=== PATIENT | male | born 1965 | race Native Hawaiian/Other Pacific Islander ===

== ENCOUNTER 2020-02-25 09:27 | Emergency (ER) | payer OTHER, SELFPAY ==
[~2020-02-25] VITALS: Ht 167.6 cm; Wt 77.1 kg
[2020-02-25 09:35] VITALS: BP 132/83
--- NOTE | 2020-02-25 09:43 | NUR ---
24 Y/O MALE C/O BILAT EAR PAIN X2 DAYS. DENIES ANY RECENT TRAUMA. DENIE ANY DISCHARGE. PT STATES HEARING HAS BEEN MUFFLED X2 DAYS. DENIES ANY COUGH, SOB, N/V/D. RESP EVEN AND UNLABORED. VSS. NO PMH
[2020-02-25] MEDS ORDERED: KETOROLAC 60 MG/2 ML VIAL IM ONE (09:55)
--- NOTE | 2020-02-25 10:10 | NUR ---
COVID-19 SWAB COLLECTED
--- NOTE | 2020-02-25 10:11 | NUR ---
Patient discharged with v/s stable. Written and verbal after care instructions given and explained. Patient alert, oriented and verbalized understanding of instructions. Ambulatory with steady gait. All questions addressed prior to discharge. ID band removed. Patient advised to follow up with PMD. Rx of MOTRIN/PREDNISONE/NORCO given. Patient educated on indication of medication including possible reaction and side effects. Opportunity to ask questions provided and answered.
[2020-02-25 10:12] VITALS: BP 132/83
--- NOTE | 2020-02-27 16:22 | NUR ---
POSITIVE RESULT OF COVID RECEIVED FROM LAB. INFETION CONTROL DEPT WILL CONTACT PATIENT.
== END 2020-02-25 10:11 | disposition home or self-care (01) ==
LOC: EDSEX 09:27 → MED 09:27
DX: U07.1 COVID-19 (principal); R05 Cough; R07.9 Chest pain, unspecified; R06.02 Shortness of breath
CPT/HCPCS: 96372; 99283; J1885; U0003

== ENCOUNTER 2020-03-12 10:56 | Emergency (ER) | payer OTHER, SELFPAY ==
[~2020-03-12] VITALS: Ht 170.2 cm; Wt 74.8 kg
[2020-03-12 11:03] VITALS: BP 117/78
[2020-03-12 13:48] VITALS: BP 117/78
== END 2020-03-12 13:48 | disposition home or self-care (01) ==
LOC: MED 10:56
DX: R07.9 Chest pain, unspecified (principal); Z20.828 Contact with and (suspected) exposure to other viral communicable diseases; H10.13 Acute atopic conjunctivitis, bilateral
CPT/HCPCS: 71045; 93005; 99285; Q0092; U0003

== ENCOUNTER 2020-03-26 12:41 | Emergency (ER) | payer OTHER, SELFPAY ==
[~2020-03-26] VITALS: Ht 170.2 cm; Wt 74.8 kg
[2020-03-26 12:56] VITALS: BP 112/75
--- NOTE | 2020-03-26 13:10 | NUR ---
C/O COUGH X 3 DAYS AND C/O ITCHY EYES X 3 WEEKS. PT HAD COVID TESTED + 02/25/20 . SEEN HERE 03/12/20 FOR ALLERGIC CONJECTIVITIS . RECHECK COVID TESTED 03/12/20 RESULT INTERMINATE
--- NOTE | 2020-03-26 14:30 | NUR ---
COVID SWAB DONE.
--- NOTE | 2020-03-26 14:35 | NUR ---
Patient discharged with v/s stable. Written and verbal after care instructions given and explained. Patient alert, oriented and verbalized understanding of instructions. Ambulatory with steady gait. All questions addressed prior to discharge. ID band removed. Patient advised to follow up with PMD. Rx of PREDNISONE & DIPHENHYDRAMINE given. Patient educated on indication of medication including possible reaction and side effects. Opportunity to ask questions provided and answered.
[2020-03-26 14:37] VITALS: BP 112/75
--- NOTE | 2020-03-28 10:58 | NUR ---
Covid results received from lab. Results = NOT DETECTED. Hard copy requested from lab and placed in infection controls mailbox.
== END 2020-03-26 14:35 | disposition home or self-care (01) ==
LOC: MED 12:41
DX: H10.10 Acute atopic conjunctivitis, unspecified eye (principal); R05 Cough; Z20.828 Contact with and (suspected) exposure to other viral communicable diseases
CPT/HCPCS: 71045; 99284; U0003

== ENCOUNTER 2020-11-20 11:10 | Emergency (ER) | payer OTHER, SELFPAY ==
[~2020-11-20] VITALS: Ht 170.2 cm; Wt 79.4 kg
[2020-11-20 11:13] VITALS: BP 139/74
--- NOTE | 2020-11-20 11:18 | NUR ---
PT AMBULATED TO BED 7, STEADY GAIT.
--- NOTE | 2020-11-20 11:25 | NUR ---
ABHIJIT ISLAS COLLECTED AND LAB CALLED FOR CHANNEL INSTALLER.
--- NOTE | 2020-11-20 11:30 | NUR ---
55 Y/M PRESENTS TO ED C C/O FEVER T MAX-102, HEADACHE 10/10 , LOSS OF SMELL FOR ONE WEEK. PT REPROTS HEACHE AND TEMP IMPROVE WITH TYLENOL . STATES HE HAS MILD SOB. PT HAS HX OF COVID BACK IN FEBRUARY 2020. 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 ADVISED BY PCP TO COME IN AND GET SWABBED. RR EVEN AND UNLABORED. PT A & O X 4. SKIN WARM, DRY TO TOUCH, PULSES 2 + NO PMH NKDA
--- NOTE | 2020-11-20 12:26 | NUR ---
Dr. Allen is evaluating the patient at bedside.
--- NOTE | 2020-11-20 12:26 | NUR ---
Patient being evaluated by Dr. Allen at bedside.
[2020-11-20] MEDS ORDERED: IBUP-2213 PO (12:49)
[2020-11-20 12:52] VITALS: BP 139/74
== END 2020-11-20 12:53 | disposition home or self-care (01) ==
LOC: MED 11:10
DX: R50.9 Fever, unspecified (principal); Z20.822 Contact with and (suspected) exposure to COVID-19; R42 Dizziness and giddiness; R43.9 Unspecified disturbances of smell and taste; M79.10 Myalgia, unspecified site
CPT/HCPCS: 99283; U0003

== ENCOUNTER 2022-05-07 08:51 | Emergency (ER) | payer OTHER ==
[~2022-05-07] VITALS: Ht 167.6 cm; Wt 77.1 kg
[~2022-05-07 08:51] MED LIST: IBUP-2213 PO
[2022-05-07 09:13] VITALS: BP 101/71
--- NOTE | 2022-05-07 09:17 | NUR ---
Patient ambulated with steady gait to bed 6.
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
--- NOTE | 2022-05-07 09:25 | NUR ---
X-Ray at bedside.
[2022-05-07] MEDS ORDERED: ALBUTEROL SULFATE/IPRATROPIU 3 ML SOL IH ONE ×2 (10:10→10:35)
--- NOTE | 2022-05-07 10:23 | NUR ---
[facility] GIVEN ORDERED ENCOURAGED PATIENT FOR INTERMITTENT DEEP BREATHING AND COUGH DURING THERAPY
--- NOTE | 2022-05-07 10:25 | NUR ---
RT AT BEDSIDE FOR BREATHING TX
--- NOTE | 2022-05-07 10:28 | NUR ---
56YO MALE PT C/O SOB [id number]. PT STATES BEING SEEN IN ER AND URGENT CARE FOR SYMPTOMS AND TOLD HE HAD BRONCHITIS/ PNEUMONIA . W/ NO RELIEF FROM RX ANTIBIOTICS AND STERIODS. PRESENTS W/ MOIST PRODUCTIVE COUGH. C/O L SIDED CHEST PAIN WHEN COUGHING. DENIES N/V/D, FEVER OR CHILLS. PT AAOX4, RESPIRATIONS EVEN AND UNLABORED. ON CLIENT DEVELOPMENT MANAGER HX:DENIES ALLERGIES: SEAFOOD
--- NOTE | 2022-05-07 10:30 | NUR ---
REVIEWED PULMONARY STATUS WITH DR. FERNANDA PUENTE MD TO ORDER FOLLOW UP [facility]
--- NOTE | 2022-05-07 10:34 | NUR ---
FOLLOW UP [facility] GIVEN ORDERED ENCOURAGED PATIENT FOR INTERMITTENT DEEP BREATHING AND COUGH DURING THERAPY PRODUCTIVE COUGH OF MODERATE THICK YELLOW/GOLD SECRETIONS DR. FERNANDA BAILEY NOTIFIED
[2022-05-07] MEDS ORDERED: BENZ150C2 PO (11:50)
[2022-05-07] MEDS ORDERED: AMOX-999 PO (11:50)
[2022-05-07] MEDS ORDERED: KETOROLAC 15 MG/ML VIAL IM ONE (12:10)
[2022-05-07 12:28] VITALS: BP 113/70
--- NOTE | 2022-05-07 12:28 | NUR ---
Patient discharged with v/s stable. Written and verbal after care instructions FOR SINUSITIS given and explained. Patient alert, oriented and verbalized understanding of instructions. Ambulatory with steady gait. All questions addressed prior to discharge. ID band removed. Patient advised to follow up with PMD. Rx of AMOXICILLIN AND BENZONATET given. Opportunity to ask questions provided and answered.
== END 2022-05-07 12:28 | disposition home or self-care (01) ==
LOC: MED 08:51
DX: J06.9 Acute upper respiratory infection, unspecified (principal); J32.9 Chronic sinusitis, unspecified
CPT/HCPCS: 71045; 94640; 94760; 96372; 99283; J1885

== ENCOUNTER 2022-05-12 19:20 | Inpatient (IN) | payer OTHER ==
[~2022-05-12] VITALS: Ht 167.6 cm; Wt 74.8 kg
[~2022-05-12 19:20] MED LIST changes: +AMOX-999 PO; +BENZ150C2 PO
[2022-05-12 19:33] VITALS: BP 107/71
--- NOTE | 2022-05-12 19:37 | NUR ---
TO LOBBY FOLLOWING TRIAGE
--- NOTE | 2022-05-12 20:15 | NUR ---
Dr. Hernandez examining patient.
[2022-05-12] MEDS ORDERED: IPRATROPIUM 0.02% 0.5 MG/2.5 ML NEBU INH ONE (20:20)
[2022-05-12] MEDS ORDERED: DEXAMETHASONE 10 MG/ML VIAL IVP ONE (20:20)
[2022-05-12] MEDS ORDERED: ALBUTEROL 0.083% 2.5 MG/3 ML NEBU INH ONE ×2 (20:20→22:20)
--- NOTE | 2022-05-12 20:57 | NUR ---
PT TAKEN TO BED 2
[2022-05-12 21:08] LABS: BASOPHILS % (AUTO) 0.5 % (0.0-2.0); EOSINOPHILS # (AUTO) 0.6 K/uL (0-0.4); EOSINOPHILS % (AUTO) 7.2 % (0.0-4.0); HEMATOCRIT 43.8 % (36-52); HEMOGLOBIN 15.3 g/dL (12.0-18.0); LYMPHOCYTES # (AUTO) 1.4 K/uL (2.0-11.5); LYMPHOCYTES % (AUTO) 17.4 % (20.5-51.1); MEAN CORPUSCULAR HEMOGLOBIN 33 pg (27-31); MEAN CORPUSCULAR HGB CONC 35 g/dL (33-37); MEAN CORPUSCULAR VOLUME 93.9 fL (80-94); MONOCYTES # (AUTO) 0.6 K/uL (0.8-1.0); MONOCYTES % (AUTO) 8.1 % (1.7-9.3); NEUTROPHILS # (AUTO) 5.2 K/uL (1.8-7.7); NEUTROPHILS % (AUTO) 66.8 % (42.2-75.2); PLATELET COUNT (AUTO) 228 K/uL (140-450); RED BLOOD CELL COUNT(AUTO) 4.67 MIL/uL (4.20-6.10); RED CELL DISTRIBUTION WIDTH 13.6 % (11.6-13.7); WHITE BLOOD COUNT (AUTO) 7.9 K/uL (4.8-10.8)
[2022-05-12 21:30] LABS: ALBUMIN 3.6 g/dL (3.4-5.0); ANION GAP 15.6 (8-16); CARBON DIOXIDE 23.7 mmol/L (21-32); CREATININE 0.9 mg/dL (0.6-1.3); POTASSIUM 4.3 mmol/L (3.5-5.1); TOTAL BILIRUBIN 0.4 mg/dL (0.0-1.0)
--- NOTE | 2022-05-12 22:00 | NUR ---
Patient A/Ox4, chest rise and fall symmetrical, no c/o pain or s/s of discomfort.
[2022-05-12] MEDS ORDERED: ACETAMINOPHEN 325 MG TAB PO PRN (23:15)
[2022-05-12] MEDS ORDERED: ONDANSETRON 4 MG/2 ML VIAL IVP PRN (23:15)
[2022-05-12] MEDS ORDERED: ALBUTEROL 0.083% 2.5 MG/3 ML NEBU INH PRN (23:15)
--- NOTE | 2022-05-13 | NUR ---
Patient A/Ox4, chest rise and fall symmetrical, no c/o pain or s/s of discomfort.
[2022-05-13] MEDS: ALBUTEROL 0.083% 2.5 MG/3 ML NEBU INH SCH ×4 (00:31→20:24)
[2022-05-13] MEDS: IPRATROPIUM 0.02% 0.5 MG/2.5 ML NEBU INH SCH ×4 (00:31→20:24)
--- NOTE | 2022-05-13 02:05 | NUR ---
Patient A/Ox4, chest rise and fall symmetrical, no c/o pain or s/s of discomfort.
[2022-05-13] MEDS ORDERED: ALBUTEROL 0.083% 2.5 MG/3 ML NEBU INH SCH (03:55)
[2022-05-13] MEDS ORDERED: WATER STERILE 10 ML MC ONE ×2 (04:02→13:11)
[2022-05-13] MEDS ORDERED: methylPREDNISolone SS 40 MG/ML VIAL ONE ×2 (04:02→13:11)
--- NOTE | 2022-05-13 04:03 | NUR ---
Patient A/Ox4, chest rise and fall symmetrical, no c/o pain or s/s of discomfort.
[2022-05-13] MEDS: guaiFENesin DM 200/20 MG-10 ML 10 ML UDC PO PRN ×3 (04:08→20:51)
[2022-05-13] MEDS: methylPREDNISolone SS 40 MG in WATER STERILE 1 ML IV SCH ×3 (04:10→13:20)
--- NOTE | 2022-05-13 06:02 | NUR ---
Patient A/Ox4, chest rise and fall symmetrical, no c/o pain or s/s of discomfort.
[2022-05-13 06:47] LABS: BASOPHILS % (AUTO) 0.1 % (0.0-2.0); EOSINOPHILS % (AUTO) 0.1 % (0.0-4.0); HEMATOCRIT 43.7 % (36-52); HEMOGLOBIN 14.9 g/dL (12.0-18.0); LYMPHOCYTES # (AUTO) 0.2 K/uL (2.0-11.5); LYMPHOCYTES % (AUTO) 4.6 % (20.5-51.1); MEAN CORPUSCULAR HEMOGLOBIN 32 pg (27-31); MEAN CORPUSCULAR HGB CONC 34 g/dL (33-37); MEAN CORPUSCULAR VOLUME 94.5 fL (80-94); MONOCYTES % (AUTO) 0.9 % (1.7-9.3); NEUTROPHILS # (AUTO) 4.3 K/uL (1.8-7.7); NEUTROPHILS % (AUTO) 94.3 % (42.2-75.2); PLATELET COUNT (AUTO) 214 K/uL (140-450); RED BLOOD CELL COUNT(AUTO) 4.62 MIL/uL (4.20-6.10); RED CELL DISTRIBUTION WIDTH 13.6 % (11.6-13.7); WHITE BLOOD COUNT (AUTO) 4.6 K/uL (4.8-10.8)
[2022-05-13 07:01] LABS: ANION GAP 17.8 (8-16); CARBON DIOXIDE 22.7 mmol/L (21-32); POTASSIUM 4.5 mmol/L (3.5-5.1)
--- NOTE | 2022-05-13 07:22 | NUR ---
Change of shift report given to AM Shift Nurse Monica. AM Shift Nurse Monica verbalized understanding of report, no further questions.
--- NOTE | 2022-05-13 08:00 | NUR ---
Pt report given to CEE OROURKE. Transfer of care at this time.
[2022-05-13] MEDS: BENZONATATE 100 MG CAPLF PO SCH ×3 (08:53→18:31)
[2022-05-13] MEDS: ENOXAPARIN 40 MG/0.4 ML SYR SUBQ SCH (08:55)
[2022-05-13 12:00] VITALS: BP 107/70
--- NOTE | 2022-05-13 13:00 | NUR ---
DISCHARGE PLANNING PATIENT IS A 56-YEAR-OLD MALE ADMITTED AT THE [facility]/ED ON 05/12/2022 DUE TO COMPLAINTS OF SHORTNESS OF BREATH AND INTERMITTENTLY SLEEP TROUBLE AT NIGHT. PATIENT HAS PREVIOUS HISTORY OF COVID 19. SW MET WITH PATIENT AT BEDSIDE TO DISCUSS AND GATHER PATIENT'S COLLATERAL INFORMATION. PATIENT REPORTED LIVING AT HOME ALONE BUT HAVING GOOD FAMILY SUPPORT, FROM HIS SON PEDRO ELIAS WHO IS HIS EMERGENCY CONTACT AND MEDICAL DECISION MAKER. PATIENT STATED NOT HAVING ADVANCE DIRECTIVES AND WAS NOT INTERESTED ON GETTING INF. FORMS PROVIDED BY SW. PATIENT REPORTED BEEN ACTIVE AND INDEPENDENT AT HOME BEFORE HE WAS SICK WITH COVID 19 AND PREVIOUS HOSPITALIZATIONS. PATIENT ALSO REPORTED NOT HAVING OR NEEDING DME AT HOME AND NOT HAVING ANY ISSUES GETTING OR TAKING ANY MEDICATIONS PRESCRIBED BY HIS DOCTOR. PATIENT STATED THAT HE [facility] MEDICATION[facility] [place] [facility] AND [facility] NEAR HIS HOME IN [facility] [facility]. SW EXPLAINED TO PATIENT THE NEED TO FOLLOW UP WITH AN APPOINTMENT WITHIN 5-7 DAYS WITH HIS PCP AFTER DC, PATIENT AGREED FOR SW TO MAKE HIS FOLLOW UP APPOINTMENT; WITH PRIMARY DOCTOR AFTER HE DISCHARGES FROM [facility]. PATIENT STATED THAT HE WILL BE DRIVING HIMSELF BACK HOME WHEN HE IS READY AND STABLE FOR DISCHARGE. SW WILL FOLLOW UP WITH PATIENT NEEDED.
--- NOTE | 2022-05-13 13:12 | NUR ---
PATIENT HAS BEEN SCREENED AND CATEGORIZED LOW NUTRITION RISK. PATIENT WILL BE SEEN WITHIN 7 DAYS OF ADMISSION. 05/19/[address]
[2022-05-13 16:00] VITALS: BP 109/58
--- NOTE | 2022-05-13 18:13 | NUR ---
Pt admitted this shift for dyspnea r/t past covid 19 diagnosis. pt reportts having Covid last year and that pt continued to have trouble breathing following. Pt reports no past medical history and no home medications. Pt reports chest pain with breathing and coughing. Pt coughing has been effectively controlled this shift with vik villarreal. Pt resting in bed with call light in reach
[2022-05-13 20:00] VITALS: BP 106/66
[2022-05-13] MEDS: methylPREDNISolone SS 40 MG/ML VIAL IVP SCH (20:44)
--- NOTE | 2022-05-13 23:30 | NUR ---
PT BACK FROM CT DEPT, CT ANGIO CHEST DONE, RESUMED O2 AT 2L VIA NC, SAT-96%, OCCASIONAL COUGH NOTED, NO SOB NOTED, VITAL SIGNS STABLE, CONTINUE TO MONITOR CLOSELY.
[2022-05-14] VITALS: BP 110/67
[2022-05-14] MEDS: IPRATROPIUM 0.02% 0.5 MG/2.5 ML NEBU INH SCH ×3 (00:21→20:43)
[2022-05-14] MEDS: ALBUTEROL 0.083% 2.5 MG/3 ML NEBU INH SCH ×3 (00:22→20:43)
--- NOTE | 2022-05-14 03:40 | NUR ---
SEEN PT SLEEPING, EASILY AROUSABLE, PT ON ROOM AIR, SAT-95%, VITAL SIGNS STABLE, NO SOB NOTED, MONITORED CLOSELY.
[2022-05-14 04:00] VITALS: BP 100/54
[2022-05-14] MEDS: methylPREDNISolone SS 40 MG/ML VIAL IVP SCH (04:54)
[2022-05-14] MEDS: guaiFENesin DM 200/20 MG-10 ML 10 ML UDC PO PRN ×2 (05:02→12:47)
--- NOTE | 2022-05-14 05:02 | NUR ---
RECEIVED PT AWAKE, ON ROOM AIR, DUE SOLUMEDROL IVP ADMINISTERED, MEDICATED PRN FOR COUGH WITH ROBITUSSIN, NO RESP DISTRESS NOTED, MONITORED CLOSELY.
--- NOTE | 2022-05-14 06:30 | NUR ---
MESSAGE DR CEDENO AGAIN REGARDING PT'S POSITIVE INFLUENZA A RESULT, MESSAGE BACK "BORA", WILL ENDORSE TO NEXT SHIFT.
--- NOTE | 2022-05-14 07:15 | NUR ---
PT SLEEPING, NO SIGNS OF DISTRESS, REPORT GIVEN TO RN CEE FOR CONTINUITY OF CARE.
[2022-05-14 07:55] VITALS: BP 104/60
[2022-05-14] MEDS: BENZONATATE 100 MG CAPLF PO SCH ×3 (09:22→17:58)
[2022-05-14] MEDS: ENOXAPARIN 40 MG/0.4 ML SYR SUBQ SCH (09:23)
[2022-05-14 12:00] VITALS: BP 103/56
[2022-05-14 16:00] VITALS: BP 111/68
[2022-05-14 20:00] VITALS: BP 109/70
--- NOTE | 2022-05-14 20:00 | NUR ---
OPENING NOTE RECEIVED PT AWAKE, ON ROOM AIR, PT IS ON DROPLET PRECAUTIONS FOR INFLUENZA A. PT HAS IV WHICH IS SL. WITH NO C/O PAIN. PT HAS BRP AND IS AOX4. ALL SAFETY MEASURES IN PLACE WILL CONTINUE TO MONITOR
[2022-05-14] MEDS: OSELTAMIVIR PHOSPHATE 75 MG CAP PO SCH (21:00)
[2022-05-14] MEDS: PROMETH/CODEINE 6.25-10MG/5ML 5 ML UDC PO PRN (21:00)
[2022-05-15] VITALS: BP 103/69
--- NOTE | 2022-05-15 00:30 | NUR ---
NEED PHYSICIAN/ALLERGY/IMMUNOLOGY PT HAS REQUESTED N PHYSICIAN/ALLERGY/IMMUNOLOGY WHEN HE IS TALKING WITH THE MD REPORT HE HAS A HARD TIME UNDERSTANDING BECAUSE MD SPEAKS FAST AND HAS ACCENT AND THE PT REPORTS HIS DIVEHI HE NEEDS HELP. THIS WAS REPORTED TO CHARGE NURSE AND WILL BE PASSED ON TO DAYSHIFT CHARGE AND DAYSHIFT RN
[2022-05-15] MEDS: ALBUTEROL 0.083% 2.5 MG/3 ML NEBU INH SCH ×4 (00:36→21:08)
[2022-05-15] MEDS: IPRATROPIUM 0.02% 0.5 MG/2.5 ML NEBU INH SCH ×4 (00:36→21:08)
--- NOTE | 2022-05-15 07:50 | NUR ---
rt notes PT REFUSED MEDS HE STATED HIS BREATHING WAS FINE. NO DISTRESS NOTED. EXPLAINED TO PT IF HE NEEDED ME TO LET NURSE KNOW. WILL CONTINUE TO MONITOR.
[2022-05-15] MEDS: ENOXAPARIN 40 MG/0.4 ML SYR SUBQ SCH (09:00)
[2022-05-15] MEDS: BENZONATATE 100 MG CAPLF PO SCH ×3 (09:00→17:27)
[2022-05-15] MEDS: OSELTAMIVIR PHOSPHATE 75 MG CAP PO SCH ×2 (09:00→21:00)
[2022-05-15] MEDS: levoFLOXacin 750 MG TAB PO SCH (09:00)
[2022-05-15] MEDS ORDERED: ALBU0.0912 IH (09:55)
[2022-05-15] MEDS ORDERED: PRED20TA5 PO (09:55)
[2022-05-15] MEDS: predniSONE 20 MG TAB PO SCH (10:39)
[2022-05-15 11:31] VITALS: BP 111/65
[2022-05-15 16:34] VITALS: BP 115/68
[2022-05-15] MEDS ORDERED: BUDESONIDE 0.5 MG/2 ML NEBU INH SCH (19:30)
[2022-05-15 20:00] VITALS: BP 118/71
[2022-05-16] VITALS: BP 109/69
[2022-05-16] MEDS: IPRATROPIUM 0.02% 0.5 MG/2.5 ML NEBU INH SCH (00:45)
[2022-05-16] MEDS: ALBUTEROL 0.083% 2.5 MG/3 ML NEBU INH SCH (00:45)
[2022-05-16 04:00] VITALS: BP 110/75
--- NOTE | 2022-05-16 07:47 | NUR ---
Report received from previous shift. Have reviewed care and continue to monitor pt. Pt in bed with call light in reach.
[2022-05-16 08:00] VITALS: BP 102/60
[2022-05-16] MEDS: ENOXAPARIN 40 MG/0.4 ML SYR SUBQ SCH (08:29)
[2022-05-16] MEDS: levoFLOXacin 750 MG TAB PO SCH (08:31)
[2022-05-16] MEDS: OSELTAMIVIR PHOSPHATE 75 MG CAP PO SCH (08:31)
[2022-05-16] MEDS: BENZONATATE 100 MG CAPLF PO SCH ×2 (08:31→12:15)
[2022-05-16] MEDS: predniSONE 20 MG TAB PO SCH (08:31)
[2022-05-16] MEDS ORDERED: IBUP-2213 PO (09:46)
[2022-05-16] MEDS ORDERED: [UNRECOGNIZED DRUG - CODE] IH (10:34)
[2022-05-16] MEDS: PROMETH/CODEINE 6.25-10MG/5ML 5 ML UDC PO PRN (12:15)
[2022-05-16] MEDS: guaiFENesin DM 200/20 MG-10 ML 10 ML UDC PO PRN (12:15)
== END 2022-05-16 12:20 | disposition home or self-care (01) | DRG 145 ==
LOC: MED 19:20 → MTU 23:19 → MMU 05-13 06:22
PROVIDERS: ADMIT Hospitalist; ATTEND Hospitalist
DX: J20.9 Acute bronchitis, unspecified (principal); J96.01 Acute respiratory failure with hypoxia; J10.1 Influenza due to other identified influenza virus with other respiratory manifestations; R04.2 Hemoptysis; K44.9 Diaphragmatic hernia without obstruction or gangrene; Z20.822 Contact with and (suspected) exposure to COVID-19; Z86.16 Personal history of COVID-19; Z79.1 Long term (current) use of non-steroidal anti-inflammatories (NSAID); Z79.899 Other long term (current) drug therapy
CPT/HCPCS: 36415; 71045; 71275; 80048; 80053; 83880; 84484; 85025; 85379; 93005; 94640; 96374; 99285; J1100; J1650; J2920; J7512; J7613; J7626; J7644; Q9967